=== PATIENT | female | born 1955 | race American Indian/Alaskan Native ===

== ENCOUNTER 2018-04-15 09:58 | Inpatient (IN) | payer MEDICARE, MEDICAID ==
[2018-04-15 09:58] VITALS: BMI 25.6
[2018-04-15] MEDS ORDERED: cefTRIAXone IV 1 gm in Dextros 50 ML IV ONE (10:42)
[2018-04-15] MEDS ORDERED: Albuterol-Ipratrop 3 mg / 0.5 (3 ml) UD INH STA (10:42)
[2018-04-15] MEDS ORDERED: Azithromycin 500 MG in Sodium Chloride 0.9% 250 ML IV STA (10:42)
[2018-04-15] MEDS ORDERED: Nitroglycerin 2% Ointment Foilpak UD TOP STA (10:44)
[2018-04-15 10:58] LABS: BASO % 0.4 % (0.0-2.0); EOS % 0.5 % (0.0-4.0); HEMOGLOBIN 11.5 g/dL (11.0-16.0); LYMPH # 1.4 K/uL (1.0-4.3); LYMPH % 19.8 % (20.0-40.0); MEAN CORPUSCULAR HEMOGLOBIN 31.2 pg (27.0-31.0); MEAN CORPUSCULAR HGB CONC 33.5 g/dL (33.0-37.0); MEAN PLATELET VOLUME 8.8 fL (7.2-11.7); MONO # 0.4 K/uL (0.0-0.8); MONO % 5.5 % (0.0-10.0); NEUT % 73.8 % (50.0-75.0); NRBC % 0.1 % (0.0-2.0); RBC 3.7 Mil/uL (3.80-5.20); RED CELL DISTRIBUTION WIDTH 15.2 % (11.5-14.5); WHITE BLOOD COUNT 6.8 K/uL (4.8-10.8)
[2018-04-15 11:05] LABS: INR 1.2; PROTHROMBIN TIME 13.2 SECONDS (9.7-12.2)
[2018-04-15 11:11] LABS: ALB/GLOB RATIO 1.3 (1.0-2.1); ALBUMIN 3.9 g/dL (3.5-5.0); ALT/SGPT 49 U/L (9-52); AST/SGOT 33 U/L (14-36); BLOOD UREA NITROGEN 9 mg/dL (7-17); CALCIUM 9.5 mg/dl (8.6-10.4); GFR AFRICAN-AMERICAN > 60; GFR NON-AFRICAN AMERICAN > 60
[2018-04-15 11:19] LABS: SQUAMOUS EPITHIAL 2 /hpf (0-5); URINE BILIRUBIN NEGATIVE (NEGATIVE); URINE BLOOD NEGATIVE (NEGATIVE); URINE CLARITY Hazy (Clear); URINE COLOR Yellow (YELLOW); URINE GLUCOSE (UA) NORMAL (Normal); URINE LEUKOCYTE ESTERASE NEG Leu/uL (Negative); URINE PROTEIN 2+ mg/dL (NEGATIVE); URINE UROBILINOGEN NORMAL mg/dL (0.2-1.0)
[2018-04-15 11:29] LABS: B-TYPE NATRIURETIC PEPTIDE 6480 pg/mL (0-900)
[2018-04-15 11:48] LABS: BARBITURATES, UR NEGATIVE (NEGATIVE); BENZODIAZEPINES, UR NEGATIVE (NEGATIVE); OPIATES, UR NEGATIVE (NEGATIVE); PHENCYCLIDINE, UR NEGATIVE (NEGATIVE)
--- NOTE | 2018-04-15 11:48 | C.PDOC ---
History Of Present Illness 62-year-old female presents to the ED with complaints of SOB and chest discomfort for over 1 week. Seen [place] [facility] [place] same complaints, patient states she refused admission because her pain was not adequately controlled. Denies any narcotic use. Patient admits to smoking, states she quit 1 week ago. Otherwise denies any headache, dizziness, visual changes, palpitations, nausea, vomiting, diarrhea, or fever. Time Seen by Provider: 04/15/18 10:34 Chief Complaint (Nursing): Shortness Of Breath History Per: Patient History/Exam Limitations: no limitations Onset/Duration Of Symptoms: Days Current Symptoms Are (Timing): Still Present Past Medical History Reviewed: Historical Data, Nursing Documentation, Vital Signs Vital Signs: Last Vital Signs Temp Pulse 97 H 04/15/18 12:43 Resp 21 04/15/18 12:43 BP 164/86 H 04/15/18 12:43 Pulse Ox 98 04/15/18 12:43 - Medical History PMH: Anxiety Surgical History: Denies: Pacemaker Other Surgeries: Hysterectomy, Left leg surgery, abdominal surgery due to obstruction - [facility] Procedures ESOPHAGOGASTRODUODENOSCOPY [EGD] W/CLOSED BIOPSY (04/18/13) Family History: States: No Known Family Hx - Social History Hx Tobacco Use: Yes (quit 1 wk ago) Hx Alcohol Use: No Hx Substance Use: No Review Of Systems Except As Marked, All Systems Reviewed And Found Negative. Constitutional: Negative for: Fever, Chills Eyes: Negative for: Vision Change Cardiovascular: Positive for: Chest Pain. Negative for: Palpitations Respiratory: Positive for: Cough, Shortness of Breath Gastrointestinal: Negative for: Nausea, Vomiting, Diarrhea Neurological: Negative for: Weakness, Numbness, Headache, Dizziness Physical Exam - Physical Exam Appears: Non-toxic, No Acute Distress, Other (Black female) Skin: Normal Color, Warm, Dry Head: Atraumatic, Normacephalic Eye(s): bilateral: PERRL, EOMI, Other (pinpoint pupils) Oral Mucosa: Moist Neck: Normal ROM, Supple Chest: Symmetrical Cardiovascular: Rhythm Regular, No Murmur, JVD (+) Respiratory: Rales (R > L), Rhonchi (R > L), Wheezing (R > L) Gastrointestinal/Abdominal: Soft, No Tenderness, No Distention, Other (Obese abdomen) Back: Normal Inspection Extremity: Normal ROM, No Calf Tenderness, No Deformity, Swelling (1/4 pitting edema to lower extremities) Pulses: Left Dorsalis Pedis: Normal, Right Dorsalis Pedis: Normal Neurological/Psych: Oriented x3, Normal Speech ED Course And Treatment - Laboratory Results Result Diagrams: 04/15/18 10:48 04/15/18 10:48 Lab Interpretation: Abnormal (trop neg, bnp 6500) ECG: Interpreted By Me ECG Rhythm: Sinus Rhythm, L BBB ECG Interpretation: No Changes From Prior (04/03) Rate From EC O2 Sat by Pulse Oximetry: 98 (NC) Pulse Ox Interpretation: Normal - Radiology CXR: Interpreted by Me, Viewed By Me CXR Interpretation: Yes: Cardiomegaly, Other (+ CHF) Progress Note: ntg, solumedrol, duonebs, Rocephin, Azithromycin, lasix Reevaluation Time: 11:42 Reassessment Condition: Improved Medical Decision Making Medical Decision Making: Impression: copd vs CHF, vs uncontrolled HTN Plan: --EKG --Labs --Urinalysis --Chest x-ray --Duoneb 3 ml INH x2 --Nitro 2% TOP --Solu-Medrol 125 mg IVP --IV Zithromax --IV Rocephin --40 mg IV Lasix Progress/Updates: 11:45am Case d/w Dr. Trina Koch - covers pt's for Dr. Dino Benz - patient accepted for admission for CHF, COPD exacerbation Disposition Doctor Will See Patient In The: Hospital Counseled Patient/Family Regarding: Studies Performed, Diagnosis - Disposition Disposition: HOSPITALIZED Disposition Time: 12:00 Condition: GOOD - Clinical Impression Clinical Impression: COPD exacerbation, Chronic congestive heart failure - Scribe Statement The provider has reviewed the documentation as recorded by the Joel Benson Provider Attestation: All medical record entries made by the Joanneibjoann were at my direction and personally dictated by me. I have reviewed the chart and agree that the record accurately reflects my personal performance of the history, physical exam, medical decision making, and the department course for this patient. I have also personally directed, reviewed, and agree with the discharge instructions and disposition. Decision To Admit - Pt Status Changed To: Hospital Disposition Of: Inpatient - Admit Certification Admit to Inpatient:: After my assessment, the patient will require hospitalization for at least two midnights. This is because of the severity of symptoms shown, intensity of services needed, and/or the medical risk in this patient being treated as an outpatient. - InPatient: Physician Admission Certification: I certify that this patient requires 2 or more midnights of care for the following reason:: chest pain, CHF, COPD exacerbation - . Bed Request Type: Telemetry Patient Diagnosis: COPD exacerbation, Chronic congestive heart failure
--- NOTE | 2018-04-15 11:50 | C.PDOC ---
Time Seen by Provider: 04/15/18 10:34 Chief Complaint (Nursing): Shortness Of Breath Past Medical History Vital Signs: Last Vital Signs Temp Pulse 94 H 04/15/18 10:18 Resp 15 04/15/18 10:36 BP 170/113 H 04/15/18 10:18 Pulse Ox 98 04/15/18 10:36 - Medical History PMH: Anxiety Surgical History: Denies: Pacemaker - [facility] Procedures ESOPHAGOGASTRODUODENOSCOPY [EGD] W/CLOSED BIOPSY (04/18/13) - Social History Hx Alcohol Use: No Hx Substance Use: No ED Course And Treatment - Laboratory Results Result Diagrams: 04/15/18 10:48 04/15/18 10:48 Lab Interpretation: Abnormal (trop neg, bnp 6500) ECG: Interpreted By Az ECG Rhythm: Sinus Rhythm, L BBB ECG Interpretation: No Changes From Prior (04/03) Rate From EC O2 Sat by Pulse Oximetry: 98 Pulse Ox Interpretation: Normal - Radiology CXR: Interpreted by Az CXR Interpretation: Yes: Cardiomegaly, Other (+CHF) Progress Note: ntp, solumedrol, duonebs, Rocephin, Azithromycin, lasix Reevaluation Time: 12:01 Reassessment Condition: Improved - Physician Consult Information Outcome Of Conversation: 1145: d/w Dr. Irina Koch- covers pt's for Dr. Dino akbar to admit. Medical Decision Making Medical Decision Making: copd vs CHF, vs uncontrolled HTN Disposition Doctor Will See Patient In The: Hospital Counseled Patient/Family Regarding: Studies Performed, Diagnosis - Disposition Disposition: HOSPITALIZED Disposition Time: 12:02 Condition: GOOD - Clinical Impression Clinical Impression: Chronic congestive heart failure, COPD exacerbation
[2018-04-15] MEDS ORDERED: cefTRIAXone IV 1 gm in Dextros 50 ML IVPB ONE (11:52)
[2018-04-15] MEDS ORDERED: Nitroglycerin 2% Ointment Foilpak UD TOP ONE (11:52)
--- NOTE | 2018-04-15 13:31 | RAD ---
Date of service: 04/15/2018 PROCEDURE: CHEST RADIOGRAPH, 1 VIEW HISTORY: SOB COMPARISON: None available. FINDINGS: LUNGS: Clear. PLEURA: No pneumothorax or pleural fluid seen. CARDIOVASCULAR: Pulmonary vascular congestive change. Mild cardiomegaly. Possible congestive heart failure OSSEOUS STRUCTURES: No significant abnormalities. VISUALIZED UPPER ABDOMEN: Normal. OTHER FINDINGS: None. IMPRESSION: Suspect congestive heart failure. No evidence of joseline pulmonary edema.
[2018-04-15 14:52] VITALS: RESP 20
[2018-04-15] MEDS ORDERED: Azithromycin 500mg/250ML NS 500 MG/250 ML BAG IVPB SCH (17:15)
[2018-04-15] MEDS ORDERED: GABAPENTIN 300 MG PO SCH (18:00)
--- NOTE | 2018-04-15 19:16 | CP.PCM.HP ---
Past Patient History - Past Social History Smoking Status: Heavy Smoker > 10 Cigarettes Daily - CARDIAC Hx Hypertension: Yes Hx Pacemaker: No - PULMONARY Hx Chronic Obstructive Pulmonary Disease (COPD): Yes - NEUROLOGICAL Hx Paralysis: No - HEMATOLOGICAL/ONCOLOGICAL Hx Blood Transfusions: No Hx Blood Transfusion Reaction: No - MUSCULOSKELETAL/RHEUMATOLOGICAL Hx Musculoskeletal Disorders: Yes Hx Falls: No Other/Comment: KNEE PAIN - PSYCHIATRIC Hx Anxiety: Yes Hx Depression: Yes Hx Substance Use: No - SURGICAL HISTORY Hx Surgeries: Yes Hx Hysterectomy: Yes Hx Orthopedic Surgery: Yes (LEFT LEG) Other/Comment: GASTRIC SX FOR OBSTRUCTION - ANESTHESIA Hx Anesthesia Reactions: No Hx Malignant Hyperthermia: No Meds Allergies/Adverse Reactions: Allergies Allergy/AdvReac Type Severity Reaction Status Date / Time No Known Allergies Allergy Verified 04/15/18 10:25 Physical Exam - Constitutional Appears: Well - Head Exam Head Exam: ATRAUMATIC, NORMAL INSPECTION, NORMOCEPHALIC - Eye Exam Eye Exam: EOMI, Normal appearance, PERRL Pupil Exam: NORMAL ACCOMODATION, PERRL - ENT Exam ENT Exam: Mucous Membranes Moist, Normal Exam - Neck Exam Neck exam: Positive for: Normal Inspection - Respiratory Exam Respiratory Exam: Decreased Breath Sounds - Cardiovascular Exam Cardiovascular Exam: REGULAR RHYTHM, +S1, +S2 - GI/Abdominal Exam GI & Abdominal Exam: Diminished Bowel Sounds, Soft - Rectal Exam Rectal Exam: Deferred Results - Vital Signs Recent Vital Signs: Last Vital Signs Temp 98.6 F 04/15/18 15:00 Pulse 117 H 04/15/18 18:00 Resp 20 04/15/18 15:00 BP 168/95 H 04/15/18 15:00 Pulse Ox 98 04/15/18 15:00 - Labs Result Diagrams: 04/15/18 10:48 04/15/18 10:48 Labs: Laboratory Results - last 24 hr 04/15/18 04/15/18 04/15/18 10:48 10:48 10:48 WBC 6.8 RBC 3.70 L Hgb 11.5 Hct 34.4 MCV 93.0 MCH 31.2 H MCHC 33.5 RDW 15.2 H Plt Count 221 MPV 8.8 Neut % (Auto) 73.8 Lymph % (Auto) 19.8 L [place] % (Auto) 5.5 Eos % (Auto) 0.5 Baso % (Auto) 0.4 Neut # (Auto) 5.0 Lymph # (Auto) 1.4 [place] # (Auto) 0.4 Eos # (Auto) 0.0 Baso # (Auto) 0.0 PT 13.2 H INR 1.2 APTT 36 H Sodium 141 Potassium 4.1 Chloride 103 Carbon Dioxide 30 Anion Gap 13 BUN 9 Creatinine 0.7 Est GFR ( Amer) > 60 Est GFR (Non-Af Amer) > 60 Random Glucose 138 H Calcium 9.5 Total Bilirubin 0.7 AST 33 ALT 49 Alkaline Phosphatase 69 Troponin I 0.0370 NT-Pro-B Natriuret Pep 6480 H Total Protein 6.8 Albumin 3.9 Globulin 2.9 Albumin/Globulin Ratio 1.3 Urine Color Urine Clarity Urine pH Ur Specific [place] Urine Protein Urine Glucose (UA) Urine Ketones Urine Blood Urine Nitrate Urine Bilirubin Urine Urobilinogen Ur Leukocyte Esterase Urine WBC (Auto) Urine RBC (Auto) Ur Squamous Epith Cells Urine Opiates Screen Urine Methadone Screen Ur Barbiturates Screen Ur Phencyclidine Scrn Ur Amphetamines Screen U Benzodiazepines Scrn U Oth Cocaine Metabols U Cannabinoids Screen 04/15/18 04/15/18 11:06 11:06 WBC RBC Hgb Hct MCV MCH MCHC RDW Plt Count MPV Neut % (Auto) Lymph % (Auto) [place] % (Auto) Eos % (Auto) Baso % (Auto) Neut # (Auto) Lymph # (Auto) [place] # (Auto) Eos # (Auto) Baso # (Auto) PT INR APTT Sodium Potassium Chloride Carbon Dioxide Anion Gap BUN Creatinine Est GFR ( Amer) Est GFR (Non-Af Amer) Random Glucose Calcium Total Bilirubin AST ALT Alkaline Phosphatase Troponin I NT-Pro-B Natriuret Pep Total Protein Albumin Globulin Albumin/Globulin Ratio Urine Color Yellow Urine Clarity Hazy Urine pH 7.0 Ur Specific [place] 1.017 Urine Protein 2+ H Urine Glucose (UA) Normal Urine Ketones Negative Urine Blood Negative Urine Nitrate Negative Urine Bilirubin Negative Urine Urobilinogen Normal Ur Leukocyte Esterase Neg Urine WBC (Auto) 1 Urine RBC (Auto) 1 Ur Squamous Epith Cells 2 Urine Opiates Screen Negative Urine Methadone Screen Negative Ur Barbiturates Screen Negative Ur Phencyclidine Scrn Negative Ur Amphetamines Screen Negative U Benzodiazepines Scrn Negative U Oth Cocaine Metabols Negative U Cannabinoids Screen Negative
[2018-04-15] MEDS: Albuterol-Ipratrop 3 mg / 0.5 (3 ml) UD INH SCH (20:15)
[2018-04-15] MEDS: MethylPREDNISolone 40 mg Vial IVP SCH (21:53)
[2018-04-16] MEDS: Albuterol-Ipratrop 3 mg / 0.5 (3 ml) UD INH SCH ×2 (01:53→07:33)
[2018-04-16] MEDS: MethylPREDNISolone 40 mg Vial IVP SCH (05:45)
[2018-04-16 08:07] VITALS: BP 164/101; PULSE 100; TEMP 97.4; O2SAT 97
--- NOTE | 2018-04-16 09:41 | CP.PCM.PN ---
Subjective - Date & Time of Evaluation Date of Evaluation: 04/16/18 Time of Evaluation: 09:40 - Subjective Subjective: PGY-[address] Irina Koch's Service. Patient seen and I attempted to exam her. Patient was refusing anymore care and wanted to sign out AMA. 62-year-old female presents to the ED with complaints of SOB and chest discomfort for over 1 week. Seen at [facility] [place] twice for the same complaints, patient states she refused admission because her pain was not adequately controlled. Denies any narcotic use. Patient admits to smoking, states she quit 1 week ago. Otherwise denies any headache, dizziness, visual changes, palpitations, nausea, vomiting, diarrhea, or fever. PMH: Anxiety Surgical History: Hysterectomy, Left leg surgery, abdominal surgery due to obstruction Allergies: Denies Remainder of H&P unobtainable due to patient leaving AMA. Objective - Vital Signs/Intake and Output Vital Signs (last 24 hours): Temp Pulse Resp BP Pulse Ox 97.4 F L 100 H 20 164/101 H 97 04/16/18 07:00 04/16/18 07:00 04/16/18 07:00 04/16/18 07:00 04/16/18 07:00 - Labs Labs: 04/15/18 10:48 04/15/18 10:48 PT 13.2 SECONDS (9.7-12.2) H 04/15/18 10:48 INR 1.2 04/15/18 10:48 APTT 36 SECONDS (21-34) H 04/15/18 10:48 Assessment and Plan - Assessment and Plan (Free Text) Assessment: 62 year old female with past medical history of anxiety who was admitted for shortness of breath (copd exacerbation vs. chf exacerbation) Plan: Shortness of breath ED Course: Duoneb 3ml INHx2, Nitro 2% TOP, Solumedrol 125mg IVP, IV Zithromax and Rocephin, 40mg IV Lasix ?CHF exacerbation vs COPD exacerbation -EKG:nsr @98bpm , left bundle branch block (No changes from previous ekg 04/03) -CXR: Cardiomegaly appreciated. -BNP 6480 upon admission -Troponin (-)x2 -Cardiology consulted. Help appreciated. NOTE: Patient left AMA without completing cardiac workup Anxiety -Patient left before verifying home medications. Dispo: Patient left AMA before getting complete h&p. Patient was made aware of the risks of signing out AMA including: cardiac arrest, demise and . Patient was adamant to leave regardless of the risk. Patient signed out AMA Will discuss plan with Dr. Irina Koch. Aba Ferrer, PGY-2
[2018-04-16] MEDS ORDERED: Pantoprazole 40 mg EC Tab PO SCH (10:00)
[2018-04-16] MEDS ORDERED: cefTRIAXone IV 1 gm in Dextros 50 ML IVPB SCH (10:00)
[2018-04-16] MEDS ORDERED: Enoxaparin 40 mg Syringe SC SCH (10:00)
[2018-04-16] MEDS ORDERED: Azithromycin 500mg/250ML NS 500 MG/250 ML BAG IVPB SCH (13:00)
--- NOTE | 2018-04-16 14:18 | CARD ---
APPROVED REPORT Date of service: 04/15/2018 EKG Measurement Heart [id number] <Conclusion> Normal sinus rhythm Possible Left atrial enlargement Prolonged QT Abnormal ECG
--- NOTE | 2018-04-17 19:38 | PQF ---
PROVIDER RESPONSE TEXT: Acute on combined chronic chf REVIEWER QUERY TEXT: CHF Acuity and Type Congestive Heart Failure is documented in the Medical Record. Please document the type and acuity (in cludes probable or suspected) Such as: Type: -- Systolic -- Diastolic -- Combined -- Other, please specify Acuity: -- Acute -- Chronic -- Acute on chronic -- Other, please specify Also please document the underlying cause of the CHF (includes probable or suspected) The patient's Clinical Indicators include: 62 year old female presented to the ER with complaints of SOB and chest discomfort for over 1 week. S rasn at [facility] [place] for the same complaits, patient states she refused admission because her pain was not meg quately controlled. Patient was admitted for CHF, COPD Exacerbation. NT-Pro-BNP --- 6480H Query created by: Randa Mcwilliams on 04/17/2018 10:24 AM Electronically signed by: Holland MENESES 04/17/2018 7:35 PM
== END 2018-04-16 08:00 | disposition left against medical advice (07) | DRG 190 ==
LOC: C.ER 09:58 → C.9E 11:45 → C.6T 14:44
PROVIDERS: ADMIT Internal Medicine Nephrology; ATTEND Internal Medicine Nephrology
DX: J44.1 Chronic obstructive pulmonary disease with (acute) exacerbation (principal); I50.43 Acute on chronic combined systolic (congestive) and diastolic (congestive) heart failure; I11.0 Hypertensive heart disease with heart failure; F17.210 Nicotine dependence, cigarettes, uncomplicated; F41.9 Anxiety disorder, unspecified; F32.9 Major depressive disorder, single episode, unspecified